=== PATIENT | male | born 1970 | race Caucasian/White ===

== ENCOUNTER → 2017-02-08 | Outpatient (CLI) | payer OTHER ==
[2017-02-08 21:05] LABS: Basophils % (A) 1 %; CH 30.7; CHCM 33.6; Eosinophils # (A) 0.1 k/uL (0-0.7); Eosinophils % (A) 3 %; HCT 42.2 % (39.0-53.0); HDW 2.54; HGB 13.9 gm/dL (13.0-17.5); Luc # (Auto) 0.09; Luc % (Auto) 2; Lymphocytes # (A) 1.4 k/uL (1.0-4.8); Lymphocytes % (A) 33 %; MCH 30.3 pg (25.0-35.0); MCHC 32.9 g/dL (31.0-37.0); MCV 91.8 fL (80.0-100.0); Mean Platelet Volume 7.6; Monocytes # (A) 0.2 k/uL (0-1.0); Monocytes % (A) 6 %; Neutrophils # (A) 2.4 k/uL (1.3-7.7); Neutrophils % (A) 56 %; RDW 12.1 % (11.5-15.5); WBC 4.3 k/uL (3.8-10.6); WBC (Perox) 4.17
[2017-02-08 21:18] LABS: ALT 52 U/L (21-72); AST 34 U/L (17-59); Alkaline Phosphatase 66 U/L (38-126); Blood Urea Nitrogen 17 mg/dL (9-20); Calcium 9.4 mg/dL (8.4-10.2); Carbon Dioxide 27 mmol/L (22-30); Chloride 105 mmol/L (98-107); Cholesterol 166 mg/dL (<200); Glucose 106 mg/dL (74-99); HDL Cholesterol 45 mg/dL (40-60); Non-African American GFR(MDRD) >60 (>60 ml/min/1.73 sqM); Potassium 4.4 mmol/L (3.5-5.1); Total Bilirubin 0.7 mg/dL (0.2-1.3); Total Protein 6.8 g/dL (6.3-8.2)
[2017-02-08 21:20] LABS: Anion Gap 8 mmol/L; Sodium 140 mmol/L (137-145)
== END ==
LOC: MMGSC 10:13
PROVIDERS: ATTEND Family Medicine
DX: I26.99 Other pulmonary embolism without acute cor pulmonale (principal)
CPT/HCPCS: 36415; 80053; 80061; 84443; 85025

== ENCOUNTER 2019-03-28 14:49 | Emergency (ER) | payer BC ==
[2019-03-28 14:54] LABS: Glucose,Whole Blood 129 mg/dL (75-99)
[2019-03-28 14:58] VITALS: RESP 18
[2019-03-28] MEDS ORDERED: SODIUM CHLORIDE 0.9% 1,000 ML IV ONE (15:14)
--- NOTE | 2019-03-28 15:26 | ED ---
General Adult HPI - General Chief complaint: Recheck/Abnormal Lab/Rx Stated complaint: SHAKY Time Seen by Provider: 03/28/19 15:03 Source: patient, RN notes reviewed, old records reviewed Mode of arrival: ambulatory Limitations: no limitations - History of Present Illness Initial comments: 47-year-old male presents for evaluation of suspected panic attack. He states that about one hour prior to arrival he felt very shaky, and shaking in both legs, fine tremor. He also became pale according to his . He states that he's been dizzy for the past several days but not overly stressed. He does admit to drinking heavily over the past several days and states that he did not eat or drink much today. He denies any associated chest pain or dyspnea. No abdominal pain nausea vomiting. No pain complaints. No headache. No focal numbness or weakness. No fever or chills. No palpitations. No syncope. - Related Data Allergies Allergy/AdvReac Type Severity Reaction Status Date / Time No Known Allergies Allergy Verified 03/28/19 14:54 Review of Systems ROS Statement: Those systems with pertinent positive or pertinent negative responses have been documented in the HPI. ROS Other: All systems not noted in ROS Statement are negative. Past Medical History Additional Past Medical History / Comment(s): mitral valve prolapse History of Any Multi-Drug Resistant Organisms: None Reported Past Surgical History: No Surgical Hx Reported Past Psychological History: Anxiety Smoking Status: Never smoker Past Alcohol Use History: Daily Past Drug Use History: None Reported General Exam Limitations: no limitations General appearance: alert, in no apparent distress Head exam: Present: atraumatic, normocephalic Eye exam: Present: normal appearance, PERRL ENT exam: Present: mucous membranes dry Neck exam: Present: normal inspection. Absent: tenderness, meningismus Respiratory exam: Present: normal lung sounds bilaterally. Absent: respiratory distress, wheezes Cardiovascular Exam: Present: regular rate, normal rhythm GI/Abdominal exam: Present: soft. Absent: distended, tenderness, guarding, rebound Extremities exam: Present: normal inspection, normal capillary refill. Absent: pedal edema Neurological exam: Present: alert, oriented X3, CN II-XII intact. Absent: motor sensory deficit Psychiatric exam: Present: normal affect, normal mood. Absent: anxious Skin exam: Present: warm, dry, intact. Absent: cyanosis, diaphoretic Course Vital Signs 03/28/19 03/28/19 14:55 15:31 Temperature 97.4 F L 99.2 F Pulse Rate 69 Respiratory 18 Rate Blood Pressure 137/58 O2 Sat by Pulse 100 Oximetry EKG Findings - EKG Comments: EKG Findings:: EKG shows sinus rhythm with marked sinus arrhythmia, rate of 67, W[place] interval 1:30, QRS duration 116, QTC 418 Medical Decision Making - Medical Decision Making 48-year-old male with an episode of tremor. No real other symptoms associated with this. He does admit to several nights of heavy alcohol consumption and states he did not eat or drink water well today. May be related to dehydration. EKG showing sinus rhythm with sinus arrhythmia, no signs of ischemia. He has normal hemoglobin, normal white blood cell count, electrolytes showed mild hyponatremia 134, otherwise normal. Urinalysis is negative for dehydration or infection. Patient given IV fluid, no other symptomatic treatment, reevaluation is tremor is improved he has no additional complaints. No palpitations or chest pain. No abdominal pain nausea vomiting. He will go home and eat and maintain oral hydration. He will return with worsening or changing symptoms. 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 - Lab Data Result diagrams: 03/28/19 15:27 03/28/19 15:27 Lab Results 03/28/19 03/28/19 03/28/19 Range/Units 14:53 15:27 15:27 WBC 5.7 (3.8-10.6) k/uL RBC 4.45 (4.30-5.90) m/uL Hgb 13.8 (13.0-17.5) gm/dL Hct 40.1 (39.0-53.0) % MCV 90.2 (80.0-100.0) fL MCH 31.0 (25.0-35.0) pg MCHC 34.4 (31.0-37.0) g/dL RDW 12.1 (11.5-15.5) % Plt Count 260 (150-450) k/uL Neutrophils % 62 % Lymphocytes % 27 % Monocytes % 6 % Eosinophils % 3 % Basophils % 1 % Neutrophils # 3.6 (1.3-7.7) k/uL Lymphocytes # 1.5 (1.0-4.8) k/uL Monocytes # 0.3 (0-1.0) k/uL Eosinophils # 0.2 (0-0.7) k/uL Basophils # 0.0 (0-0.2) k/uL Sodium 134 L (137-145) mmol/L Potassium 4.0 (3.5-5.1) mmol/L Chloride 100 (98-107) mmol/L Carbon Dioxide 24 (22-30) mmol/L Anion Gap 10 mmol/L BUN 15 (9-20) mg/dL Creatinine 0.79 (0.66-1.25) mg/dL Est GFR (CKD-EPI)AfAm >90 (>60 ml/min/1.73 sqM) Est GFR (CKD-EPI)NonAf >90 (>60 ml/min/1.73 sqM) Glucose 116 H (74-99) mg/dL POC Glucose (mg/dL) 129 H (75-99) mg/dL POC Glu [employer] Vanessa Hines Calcium 9.3 (8.4-10.2) mg/dL Magnesium 1.6 (1.6-2.3) mg/dL Total Bilirubin 0.4 (0.2-1.3) mg/dL AST 33 (17-59) U/L ALT 35 (21-72) U/L Alkaline Phosphatase 66 (38-126) U/L Total Protein 7.0 (6.3-8.2) g/dL Albumin 4.4 (3.5-5.0) g/dL Urine Color Urine Appearance (Clear) Urine pH (5.0-8.0) Ur Specific Beggs (1.001-1.035) Urine Protein (Negative) Urine Glucose (UA) (Negative) Urine Ketones (Negative) Urine Blood (Negative) Urine Nitrite (Negative) Urine Bilirubin (Negative) Urine Urobilinogen (<2.0) mg/dL Ur Leukocyte Esterase (Negative) 03/28/19 Range/Units 16:25 WBC (3.8-10.6) k/uL RBC (4.30-5.90) m/uL Hgb (13.0-17.5) gm/dL Hct (39.0-53.0) % MCV (80.0-100.0) fL MCH (25.0-35.0) pg MCHC (31.0-37.0) g/dL RDW (11.5-15.5) % Plt Count (150-450) k/uL Neutrophils % % Lymphocytes % % Monocytes % % Eosinophils % % Basophils % % Neutrophils # (1.3-7.7) k/uL Lymphocytes # (1.0-4.8) k/uL Monocytes # (0-1.0) k/uL Eosinophils # (0-0.7) k/uL Basophils # (0-0.2) k/uL Sodium (137-145) mmol/L Potassium (3.5-5.1) mmol/L Chloride (98-107) mmol/L Carbon Dioxide (22-30) mmol/L Anion Gap mmol/L BUN (9-20) mg/dL Creatinine (0.66-1.25) mg/dL Est GFR (CKD-EPI)AfAm (>60 ml/min/1.73 sqM) Est GFR (CKD-EPI)NonAf (>60 ml/min/1.73 sqM) Glucose (74-99) mg/dL POC Glucose (mg/dL) (75-99) mg/dL POC Glu [employer] Calcium (8.4-10.2) mg/dL Magnesium (1.6-2.3) mg/dL Total Bilirubin (0.2-1.3) mg/dL AST (17-59) U/L ALT (21-72) U/L Alkaline Phosphatase (38-126) U/L Total Protein (6.3-8.2) g/dL Albumin (3.5-5.0) g/dL Urine Color Yellow Urine Appearance Clear (Clear) Urine pH 5.0 (5.0-8.0) Ur Specific Beggs 1.013 (1.001-1.035) Urine Protein Negative (Negative) Urine Glucose (UA) Negative (Negative) Urine Ketones Negative (Negative) Urine Blood Negative (Negative) Urine Nitrite Negative (Negative) Urine Bilirubin Negative (Negative) Urine Urobilinogen <2.0 (<2.0) mg/dL Ur Leukocyte Esterase Negative (Negative) Disposition Clinical Impression: Dehydration Disposition: HOME SELF-CARE Condition: Good Instructions (If sedation given, give patient instructions): Dehydration (ED) Is patient prescribed a controlled substance at d/c from ED?: No Referrals: Jennifer Perez MD [Primary Care Provider] - 1-2 days Time of Disposition: 16:48
[2019-03-28 15:48] LABS: Basophils % (A) 1 %; Eosinophils # (A) 0.2 k/uL (0-0.7); Eosinophils % (A) 3 %; HCT 40.1 % (39.0-53.0); HGB 13.8 gm/dL (13.0-17.5); Lymphocytes # (A) 1.5 k/uL (1.0-4.8); Lymphocytes % (A) 27 %; MCHC 34.4 g/dL (31.0-37.0); MCV 90.2 fL (80.0-100.0); Mean Platelet Volume 6.6; Monocytes # (A) 0.3 k/uL (0-1.0); Monocytes % (A) 6 %; Neutrophils # (A) 3.6 k/uL (1.3-7.7); Neutrophils % (A) 62 %; Platelet Count 260 k/uL (150-450); RBC 4.45 m/uL (4.30-5.90); RDW 12.1 % (11.5-15.5); WBC 5.7 k/uL (3.8-10.6)
[2019-03-28 15:57] LABS: ALT 35 U/L (21-72); AST 33 U/L (17-59); African American GFR (CKD) >90 (>60 ml/min/1.73 sqM); Albumin 4.4 g/dL (3.5-5.0); Alkaline Phosphatase 66 U/L (38-126); Anion Gap 10 mmol/L; Blood Urea Nitrogen 15 mg/dL (9-20); Calcium 9.3 mg/dL (8.4-10.2); Carbon Dioxide 24 mmol/L (22-30); Chloride 100 mmol/L (98-107); Glucose 116 mg/dL (74-99); Magnesium 1.6 mg/dL (1.6-2.3); Non-African American GFR(CKD) >90 (>60 ml/min/1.73 sqM); Sodium 134 mmol/L (137-145); Total Bilirubin 0.4 mg/dL (0.2-1.3)
[2019-03-28 16:36] LABS: Appearance,Urine Clear (Clear); Bilirubin,Urine Negative (Negative); Blood,Urine Negative (Negative); Color,Urine Yellow; Glucose,Urine (UA) Negative (Negative); Ketones,Urine Negative (Negative); Leukocyte Esterase,Urine Negative (Negative); Nitrite,Urine Negative (Negative); Protein,Urine Negative (Negative); Specific Gravity,Urine 1.013 (1.001-1.035); Urobilinogen,Urine <2.0 mg/dL (<2.0)
[2019-03-28 17:11] VITALS: BP 131/88; PULSE 71; TEMP 98
== END 2019-03-28 17:01 | disposition home or self-care (01) ==
LOC: EC 14:49
DX: E86.0 Dehydration (principal); I49.8 Other specified cardiac arrhythmias; E87.1 Hypo-osmolality and hyponatremia; R25.1 Tremor, unspecified; Z86.59 Personal history of other mental and behavioral disorders
CPT/HCPCS: 36415; 80053; 81003; 83735; 85025; 93005; 96360; 99284

== ENCOUNTER 2021-03-17 07:26 | Day surgery (SDC) | payer BC ==
[2021-03-15 12:06] VITALS: BMI 28.7
[~2021-03-17 07:26] MED LIST: LACTATED RINGERS 1,000 ML IV SCH
[2021-03-17 08:03] VITALS: RESP 16; TEMP 98
[2021-03-17] MEDS ORDERED: PROPOFOL 10 MG/ML 20 ML VIAL IV ONE (08:05)
--- NOTE | 2021-03-17 08:23 | P.PCN ---
Date of Procedure: 03/17/21 Procedure(s) Performed: BRIEF HISTORY: Patient is a 50-year-old pleasant male scheduled for an elective colonoscopy as a part of screening for colorectal neoplasia. PROCEDURE PERFORMED: Colonoscopy. PREOPERATIVE DIAGNOSIS: Screening for colon cancer. IV sedation per Anesthesia. PROCEDURE: After informed consent was obtained, the patient, was brought into the endoscopy unit. IV sedation was administered by Anesthesia under continuous monitoring. Digital rectal examination was normal. Initially the Olympus CF-160 flexible video colonoscope was then inserted in the rectum, gradually advanced into the cecum without any difficulty. Careful examination was performed as the scope was gradually being withdrawn. Ileocecal valve and the appendiceal orifice were visualized and appeared normal. Prep was excellent. Mucosa of the cecum, ascending colon, transverse colon, descending colon, sigmoid colon, and rectum appeared normal. Retroflexion was performed in the rectum and no lesions were seen. The patient tolerated the procedure well. IMPRESSION: Normal-appearing colon from rectum to cecum no evidence of colorectal . RECOMMENDATIONS: Findings of this examination were discussed with the patient as well as his family. He was advised to have a repeat screening colonoscopy in 10 years
[2021-03-17 08:41] VITALS: BP 120/72; PULSE 51
== END 2021-03-17 09:12 | disposition home or self-care (01) ==
LOC: ORWHC2ENDO 07:26
PROVIDERS: ATTEND Internal Medicine Gastroenterology
DX: Z12.11 Encounter for screening for malignant neoplasm of colon (principal)
CPT/HCPCS: 45378; J2704

== ENCOUNTER → 2024-08-03 | Outpatient (CLI) | payer OTHER ==
--- NOTE | 2024-08-04 22:41 | P.PCN ---
Date of Procedure: 08/03/24 Operative Findings: Home sleep study date of service is 08/03/2024 History this is a 54-year-old male patient with history of mild obstructive sleep apnea with an AHI of 15 based on a home sleep study that was done back in 2021. At that time, the patient was offered therapy and the response to CPAP therapy has been suboptimal and the treatment was discontinued as the patient did not meet adequate compliancy. The patient is coming in for an evaluation. He has gained weight up to 50 pounds since his initial evaluation. He has also developed atrial fibrillation and currently his rhythm is back to sinus. A home sleep study was ordered to evaluate presence and severity of sleep apnea. He has his tory of depression/anxiety maintained on a combination of Klonopin and Pristiq. Physical findings Weight is 205 pounds and a body mass index is 29.4 Technical description The [employer] ApneaLink system was used to complete his home sleep study. This is a type of your sleep study evaluation. The total recording duration was 8 hours and 10 minutes. The recording started at 10 PM and ended at 6:11 AM. There was a total of 7 hours and 58 minutes of flow monitoring and 8 hours of oxygen saturation monitoring. Results Respiratory analysis showed a total of 0 obstructive apneas, 0 mixed apneas and 30 obstructive hypopneas. No central apneas were noted. The resulting AHI was 3.8. AHI in the supine with the position was 6.2. Oxygenation analysis The baseline pulse ox was 97% room air oxygen. Average pulse ox during sleep was 94% with a minimum pulse ox of 83%. The patient spent majority of the sleep time above a pulse ox of 89%. Cardiac summary Average heart rate of 46 with a minimum heart rate of 40 and a maximum heart of 85 Assessment Primary snoring, no evidence of any sleep eating disorder. AHI is 3.8. Few obstructive hypopneas were noted in a supine body position. Paroxysmal A-fib, current rhythm is sinus History of depression Plan Patient will be reassured. No need for therapy as there is no significant sleep breathing disorder Encourage weight loss Sleep on his side as the patient has few obstructive hypopneas in the supine body position Maintain regular sleep schedule Referred back to primary care.
== END ==
LOC: 3 N SLEEP 10:44
PROVIDERS: ATTEND Internal Medicine Critical Care Medicine
DX: G47.33 Obstructive sleep apnea (adult) (pediatric) (principal); I48.0 Paroxysmal atrial fibrillation; Z86.59 Personal history of other mental and behavioral disorders